=== PATIENT | female | born 1960 | race Caucasian/White ===

== ENCOUNTER 2022-02-13 00:54 | Day surgery (SDC) | payer BC, SELFPAY ==
[2021-12-22 16:15] VITALS: BMI 22.4
[2022-01-27 11:57] VITALS: BMI 22.3
--- NOTE | 2022-02-11 13:41 | PM.HPGS ---
History of Present Illness History of Present Illness Consent: Risks, benefits, and alternatives have been discussed and questions answered. Patient agrees to proceed with procedure. Chief complaint: neoplasm screening Narrative: Lia Palma is a 61 year old female referred for colon cancer screening. She had a colonoscopy about 5 years ago with removal of a polyp Review of Systems Review of Systems: All systems reviewed & are unremarkable except as noted in HPI and below PMFSH Past Medical History Medical History High cholesterol Vitamin D deficiency Surgical History Surgical History History of tonsillectomy Family History Family History Mother Heart disease Father Diabetes mellitus Kidney disease Grandparent Throat cancer maternal grandmother Sibling Lung cancer sister / brother Social History Social History Smoking status: Never smoker Alcohol intake: current Drinks per week: 4 Substance use: never Substance use type: does not use Living arrangements: with family Additional living arrangements comments: Additional occupation/education comments: retail Gender identity (if verbalized by the patient): Female Sexual Orientation (if Verbalized by the Patient): Straight or Heterosexual Spiritual care concerns: No Meds Home Medications and Allergies Home Medications Medication Instructions Recorded Confirmed Type loratadine 10 mg tablet (Claritin) 10 mg PO DAILY 12/02/21 12/22/21 History rosuvastatin 40 mg tablet (Crestor) 40 mg PO DAILY 12/02/21 12/22/21 History Allergies Allergy/AdvReac Type Severity Reaction Status Date / Time No Known Allergies Allergy Verified 02/13/22 09:08 Exam Const: General: alert Orientation/consciousness: patient oriented x3 Resp: Auscultation: clear to auscultation bilaterally Cardio: Rhythm: regular rhythm GI: GI Palp: Yes Soft to palpation and No Tenderness to palpation present (GI) Neuro: General: patient oriented x3 Assessment and Plan Assessment and plan (1) Colon cancer screening: Code(s): Z12.11 - Encounter for screening for malignant neoplasm of colon Status: Acute Assessment and Plan: Colonoscopy with possible biopsy or polypectomy or cautery or injection of substances.
[2022-02-13 09:09] VITALS: BP 135/91; PULSE 76; RESP 18; TEMP 36.6; O2SAT 99
[2022-02-13] MEDS: LACTATED RINGERS 1,000 ML 150 ML IV CONT (09:19)
--- NOTE | 2022-02-13 09:32 | WPDANESEPPF ---
Anes - Initial Pre Proc Eval Procedure: Operation Date: 02/13/22 10:30 Proposed Procedures p Screening Colonoscopy - Bj Boykin MD Date/Time: 02/13/22 09:32 Surgeon: Bj Boykin MD Pre Op Diagnosis: neoplasm screening Patient Data Age: 61 Gender: F Height: 1.63 m Weight: 61.9 kg Last Vital Signs Temp 98 F 02/13/22 09:09 Pulse 76 02/13/22 09:09 Resp 18 02/13/22 09:09 BP 135/91 H 02/13/22 09:09 Pulse Ox 99 02/13/22 09:09 O2 Del Method Room Air 02/13/22 09:09 Allergies Allergy/AdvReac Type Severity Reaction Status Date / Time No Known Allergies Allergy Verified 02/13/22 09:08 Home Medications Medication Instructions Recorded Confirmed Type loratadine 10 mg tablet (Claritin) 10 mg PO DAILY 12/02/21 12/22/21 History rosuvastatin 40 mg tablet (Crestor) 40 mg PO DAILY 12/02/21 12/22/21 History Patient hx anesthesia problems: none Family hx anesthesia problems: none Results Review: All pre-operative results and documents have been reviewed as part of the pre-operative evaluation. [facility] Past Medical History Medical History (Updated 02/11/22 @ 13:41 by Bj Boykin MD) High cholesterol Vitamin D deficiency Surgical History Surgical History (Updated 12/02/21 @ 07:35 by LEXII Matos) History of tonsillectomy Family History Family History (Updated 12/02/21 @ 08:46 by LEXII Matos) Mother Heart disease Father Diabetes mellitus Kidney disease Grandparent Throat cancer maternal grandmother Sibling Lung cancer sister / brother Social History Social History (Updated 12/02/21 @ 08:46 by LEXII Matos) Smoking status: Never smoker Alcohol intake: current Drinks per week: 4 Substance use: never Substance use type: does not use Living arrangements: with family Additional living arrangements comments: Additional occupation/education comments: retail Gender identity (if verbalized by the patient): Female Sexual Orientation (if Verbalized by the Patient): Straight or Heterosexual Spiritual care concerns: No Anes - Eval Final PreProcedure Day of Procedure 02/13/22 09:32 Patient weight: normal Heart: regular rate and rhythm Lungs: clear to auscultation Airway: Mallampati scale class II Neurological: alert and oriented Last oral intake: >/= 8 hours ASA classification: II Emergent: no Anesthetic plan: proceed Anesthesia type and monitoring: general GIVS and standard monitoring Results Review: All pre-operative results and documents have been reviewed as part of the pre-operative evaluation. Informed Consent: The patient's anesthetic plan and its attendant risks and benefits were discussed with the patient/family/POA. Questions were solicited and answers provided to the satisfaction of the patient/family/POA.
[2022-02-13 10:15] VITALS: BP 144/83; PULSE 88; RESP 23; O2SAT 96
[2022-02-13 10:25] VITALS: BP 140/80; PULSE 78; RESP 19; O2SAT 97
[2022-02-13 10:35] VITALS: BP 164/95; PULSE 67; RESP 19; O2SAT 100
== END 2022-02-13 10:53 | disposition home or self-care (01) ==
PROVIDERS: PCP Internal Medicine; Visit Provider Internal Medicine Gastroenterology
PROC: 0DJD8ZZ Inspection of Lower Intestinal Tract, Via Natural or Artificial Opening Endoscopic (ICD-10-PCS; CPT 45378; principal; 2022-02-13 10:30)
DX: Z12.11 Encounter for screening for malignant neoplasm of colon (principal); K64.8 Other hemorrhoids; E55.9 Vitamin D deficiency, unspecified; E78.00 Pure hypercholesterolemia, unspecified
CPT/HCPCS: 45378; J2704; J7120